=== PATIENT | female | born 1955 ===

== ENCOUNTER 2024-06-30 15:59 | Outpatient (REF) | payer BC, SELFPAY ==
[2024-06-30 14:32] LABS: HGB 13.5 g/dL (11.2-15.7); MCH 30.8 pg (27.0-33.0); MCHC 32.9 % (32.0-36.0); MCV 93 fL (80-95); MPV 11.9 fL (8.0-11.0); Platelet Count 169 10^3/uL (130-400); RBC 4.39 10^6/uL (3.93-5.22); RDW 12.7 % (11.7-14.6); RDW-SD 43.7 fL
[2024-06-30 15:05] LABS: ALT 28 U/L (14-59); AST 45 U/L (15-37); Albumin 3.3 g/dL (3.4-5.0); Alkaline Phosphatase 119 U/L (46-116); BUN 10 mg/dL (7-18); Bilirubin, Total 0.35 mg/dL (0.2-1.0); CREATININE 0.7 mg/dL (0.55-1.02); Calcium 8.9 mg/dL (8.5-10.1); Calculated LDL 167 mg/dL (<100); Chloride 108 mmol/L (98-107); Cholesterol 247 mg/dL (<200); Estimated GFR 93.56 (mL/min/1.73m2); Glucose 73 mg/dL (74-106); HDL Cholesterol 47 mg/dL (40-60); Magnesium 2.2 mg/dL (1.8-2.4); Potassium 3.8 mmol/L (3.5-5.1); Sodium 142 mmol/L (136-145); TSH (W/Ref FT4) 1.63 uIU/mL (0.36-3.74); Triglyceride 165 mg/dL (<150); Vitamin B12 1918 pg/mL (193-986); Vitamin D 25 Total 29.1 ng/mL (30-100)
[2024-06-30 15:07] LABS: C-Reactive Protein < 0.50 mg/dL (<or=0.5)
== END 2024-06-30 16:00 | disposition home or self-care (01) ==
LOC: NCHCN 15:59
PROVIDERS: PCP Family Medicine; Visit Provider Family Medicine
DX: M25.561 Pain in right knee (principal); Z00.00 Encounter for general adult medical examination without abnormal findings; D64.9 Anemia, unspecified; E78.5 Hyperlipidemia, unspecified
CPT/HCPCS: 80053; 80061; 82306; 85027; 82607; 83735; 84443; 86140